=== PATIENT | male | born 1940 | race American Indian/Alaskan Native ===

== ENCOUNTER 2018-08-06 09:39 | Emergency (ER) | payer OTHER ==
[2018-08-06 09:43] VITALS: BMI 29.0
[2018-08-06 09:47] VITALS: BP 134/82; PULSE 57; RESP 18; TEMP 97.6; O2SAT 99
--- NOTE | 2018-08-06 09:57 | ED PDOC ---
Arrival/HPI - General Historian: Patient - History of Present Illness Narrative History of Present Illness (Text): 08/06/18 09:53 78yo male with no significant pmhx present to ED requesting treatment for Trchomonasis. Patient's by the bedside states she tested positive and was treated by her MUSIC LEADER. States he brought the for treatment base of her Doctors instruction. The patient denies any dysuria, discharger, penile pain, abdominal pain, fever, chills, back pain, any other complaint. <DiruHappiness A - Last Filed: 08/06/18 09:53> <Lenny Gupta - Last Filed: 08/06/18 15:32> - General Chief Complaint: Male Genitourinary Time Seen by Provider: 08/06/18 09:47 Past Medical History - Provider Review Nursing Documentation Reviewed: Yes - Infectious Disease Hx of Infectious Diseases: None - Psychiatric Hx Substance Use: No - Anesthesia Hx Anesthesia: No <DirsaeidHappiness A - Last Filed: 08/06/18 09:53> Family/Social History - Physician Review Nursing Documentation Reviewed: Yes Family/Social History: Unknown Family HX Smoking Status: Never Smoked Hx Alcohol Use: No Hx Substance Use: No <DiruHappiness A - Last Filed: 08/06/18 09:53> Allergies/Home Meds <DiruHappiness A - Last Filed: 08/06/18 09:53> <Lenny Gupta - Last Filed: 08/06/18 15:32> Allergies/Adverse Reactions: Allergies No Known Allergies Allergy (Verified 08/06/18 09:43) Review of Systems - Physician Review All systems were reviewed & negative as marked: Yes - Review of Systems Constitutional: Normal Eyes: Normal ENT: Normal Respiratory: Normal Cardiovascular: Normal Gastrointestinal: Normal Genitourinary Male: Normal, Other (Trichomoniasis treatment) Musculoskeletal: Normal Skin: Normal Neurological: Normal Endocrine: Normal Hemo/Lymphatic: Normal Psychiatric: Normal <DiruHappiness A - Last Filed: 08/06/18 09:53> Physical Exam Vital Signs Reviewed: Yes Vital Signs Temp Pulse Resp BP Pulse Ox 08/06/18 09:46 97.6 F 57 L 18 134/82 99 Temperature: Afebrile Blood Pressure: Normal Pulse: Regular Respiratory Rate: Normal Appearance: Positive for: Well-Appearing, Non-Toxic, Comfortable Pain Distress: None Mental Status: Positive for: Alert and Oriented X 3 - Systems Exam Head: Present: Atraumatic, Normocephalic Pupils: Present: PERRL Extroacular Muscles: Present: EOMI Conjunctiva: Present: Normal Mouth: Present: Moist Mucous Membranes Neck: Present: Normal Range of Motion Respiratory/Chest: Present: Clear to Auscultation, Good Air Exchange. No: Respiratory Distress, Accessory Muscle Use Cardiovascular: Present: Regular Rate and Rhythm, Normal S1, S2. No: Murmurs Abdomen: No: Tenderness, Distention, Peritoneal Signs Back: Present: Normal Inspection Upper Extremity: Present: Normal Inspection. No: Cyanosis, Edema Lower Extremity: Present: Normal Inspection. No: Edema Neurological: Present: GCS=15, CN II-XII Intact, Speech Normal Skin: Present: Warm, Dry, Normal Color. No: Rashes Psychiatric: Present: Alert, Oriented x 3, Normal Insight, Normal Concentration <Diru,Happiness A - Last Filed: 08/06/18 09:53> Vital Signs Temp Pulse Resp BP Pulse Ox 08/06/18 09:46 97.6 F 57 L 18 134/82 99 <Lenny Gupta - Last Filed: 08/06/18 15:32> Medical Decision Making - Medication Orders Current Medication Orders: Discontinued Medications Metronidazole (Flagyl) 500 mg PO STAT STA; Protocol Stop: 08/06/18 09:53 Last Admin: 08/06/18 10:06 Dose: 500 mg <Lenny Gupta - Last Filed: 08/06/18 15:32> - PA / PRIMARY CARE NURSE / Resident Statement / has reviewed & agrees with the documentation as recorded. <Lenny Gupta - Last Filed: 08/06/18 15:32> Disposition/Present on Arrival - Present on Arrival Any Indicators Present on Arrival: No History of DVT/PE: No History of Uncontrolled Diabetes: No Urinary Catheter: No History of Decub. Ulcer: No History Surgical Site Infection Following: None - Disposition Have Diagnosis and Disposition been Completed?: Yes Disposition Time: 10:00 Patient Plan: Discharge <Diru,Happiness A - Last Filed: 08/06/18 09:53> <Lenny Gupta - Last Filed: 08/06/18 15:32> - Disposition Diagnosis: Trichomoniasis Disposition: HOME/ ROUTINE Condition: STABLE Discharge Instructions (ExitCare): Trichomoniasis Additional Instructions: Follow up with your doctor/clinic Return to ED for any new or worsening symptoms Prescriptions: metroNIDAZOLE [Flagyl] 500 mg PO BID #14 tab Referrals: Clover Pascal MD [Medical Doctor] - Follow up with primary Forms: [employer] (Chinese)
== END 2018-08-06 10:28 | disposition home or self-care (01) ==
LOC: ED 09:39
DX: A59.9 Trichomoniasis, unspecified (principal)

== ENCOUNTER 2018-09-19 12:38 | Emergency (ER) | payer OTHER ==
[2018-09-19 12:40] VITALS: BMI 26.6
[2018-09-19 12:46] VITALS: BP 138/83; PULSE 58; RESP 18; TEMP 97.5; O2SAT 99
--- NOTE | 2018-09-19 13:05 | ED PDOC ---
Arrival/HPI - General Chief Complaint: Med Refill Time Seen by Provider: 09/19/18 12:41 Historian: Patient - History of Present Illness Narrative History of Present Illness (Text): 09/19/18 13:02 A 78 year old male presents to the emergency department requesting a prescription for Flagyl. Patient recently tested positive for Trichomoniasis. He reports not using protection during intercourse. He denies fevers, chills, headache, dizziness, chest pain, shortness of breath, dyspnea on exertion, cough, abdominal pain, nausea, vomiting, diarrhea, back pain, neck pain, dysuria, hematuria, penile discharge, penile lesions, urinary/bowel changes, or any other complaint. PMD: None Symptom Onset: Sudden Symptom Course: Unchanged Activities at Onset: Rest, Light Context: Home Past Medical History - Provider Review Nursing Documentation Reviewed: Yes - Infectious Disease Hx of Infectious Diseases: None - Psychiatric Hx Substance Use: No - Anesthesia Hx Anesthesia: No Family/Social History - Physician Review Nursing Documentation Reviewed: Yes Family/Social History: No Known Family HX Smoking Status: Never Smoked Hx Alcohol Use: No Hx Substance Use: No Allergies/Home Meds Allergies/Adverse Reactions: Allergies No Known Allergies Allergy (Verified 08/06/18 09:43) Review of Systems - Physician Review All systems were reviewed & negative as marked: Yes - Review of Systems Constitutional: absent: Fevers Respiratory: absent: SOB, Cough Cardiovascular: absent: Chest Pain, [place] Gastrointestinal: absent: Abdominal Pain, Stool Changes, Diarrhea, Nausea, Vomiting Genitourinary Male: absent: Dysuria, Hematuria, Urinary Output Changes Musculoskeletal: absent: Back Pain, Neck Pain Neurological: absent: Headache, Dizziness Physical Exam Vital Signs Reviewed: Yes Vital Signs Temp Pulse Resp BP Pulse Ox 09/19/18 12:45 97.5 F L 58 L 18 138/83 99 Temperature: Hypothermic Blood Pressure: Normal Pulse: Bradycardic Respiratory Rate: Normal Appearance: Positive for: Well-Appearing, Non-Toxic, Comfortable Pain Distress: None Mental Status: Positive for: Alert and Oriented X 3 - Systems Exam Head: Present: Atraumatic, Normocephalic Pupils: Present: PERRL Extroacular Muscles: Present: EOMI Conjunctiva: Present: Normal Mouth: Present: Moist Mucous Membranes Neck: Present: Normal Range of Motion Respiratory/Chest: Present: Clear to Auscultation, Good Air Exchange. No: Respiratory Distress, Accessory Muscle Use Cardiovascular: Present: Regular Rate and Rhythm, Normal S1, S2. No: Murmurs Abdomen: No: Tenderness, Distention, Peritoneal Signs Back: Present: Normal Inspection Upper Extremity: Present: Normal Inspection. No: Cyanosis, Edema Lower Extremity: Present: Normal Inspection. No: Edema Neurological: Present: GCS=15, CN II-XII Intact, Speech Normal Skin: Present: Warm, Dry, Normal Color. No: Rashes Psychiatric: Present: Alert, Oriented x 3, Normal Insight, Normal Concentration Medical Decision Making ED Course and Treatment: 09/19/18 13:05 Impression: A 78 year old male presents to the emergency department requesting a prescription for Flagyl after testing positive for Trichomonas Plan: -- Reassess and disposition Prior Visits: Notes and results from previous visits were reviewed. Patient was seen in the emergency department on 08/06/18 requesting treatment for Trichomoniasis. Patient was discharged home on Flagyl. Progress Notes: 09/19/18 13:08 Patient is in no acute distress. I have discussed the results and plan with the patient, who expresses understanding. Patient in agreement with plan to be discharged home. Patient is stable for discharge. Patient was instructed to follow up with physician or return if symptoms worsen or new concerning symptoms arise. 09/19/18 22:15 refuses any other std eval - Scribe Statement The provider has reviewed the documentation as recorded by the Scribe Denise Ernst Provider Scribe Attestation: All medical record entries made by the Scribe were at my direction and personally dictated by me. I have reviewed the chart and agree that the record accurately reflects my personal performance of the history, physical exam, medical decision making, and the department course for this patient. I have also personally directed, reviewed, and agree with the discharge instructions and disposition. Disposition/Present on Arrival - Present on Arrival Any Indicators Present on Arrival: No History of DVT/PE: No History of Uncontrolled Diabetes: No Urinary Catheter: No History of Decub. Ulcer: No History Surgical Site Infection Following: None - Disposition Have Diagnosis and Disposition been Completed?: Yes Diagnosis: Possible exposure to STD Disposition: HOME/ ROUTINE Disposition Time: 12:00 Condition: STABLE Discharge Instructions (ExitCare): Trichomoniasis, Screening for Sexually Transmitted Infections Prescriptions: RX: metroNIDAZOLE [Flagyl] 500 mg PO BID #14 tab Referrals: [facility] [Outside] - Follow up with primary [facility] [Outside] - Follow up with primary Forms: [employer] (Sami)
== END 2018-09-19 14:00 | disposition home or self-care (01) ==
LOC: ED 12:38
DX: Z20.2 Contact with and (suspected) exposure to infections with a predominantly sexual mode of transmission (principal)

== ENCOUNTER 2018-10-04 08:30 | Outpatient (CLI) | payer OTHER | END 2018-10-04 08:31 | disposition home or self-care (01) | LOC: LAB 08:30 ==